=== PATIENT | female | born 2000 | race Caucasian/White ===

== ENCOUNTER 2021-08-04 08:58 | Day surgery (SDC) | payer BC ==
[~2021-08-04] VITALS: Ht 162.6 cm; Wt 93.4 kg
[2021-08-04 09:22] VITALS: BP 116/75; PULSE 84; TEMP 98.3
[2021-08-04 10:40] VITALS: BP 127/79; PULSE 89
--- NOTE | 2021-08-04 10:40 | NUR ---
Patient returns to [facility] [address] per cart and is able to transfer self from cart to recliner. States that she feels very dizzy. IV fluids infusing. Mother in room. Call light in reach. Allowed to rest.
[2021-08-04 10:55] VITALS: BP 119/79; PULSE 80
--- NOTE | 2021-08-04 10:55 | NUR ---
Dr. Thornton in the room talking with the patient and mother. Given muffin and water. Has denied nausea.
[2021-08-04 11:10] VITALS: BP 114/83; PULSE 71
--- NOTE | 2021-08-04 11:10 | NUR ---
Resting and talking with mother.
[2021-08-04 11:25] VITALS: BP 118/70; PULSE 73
--- NOTE | 2021-08-04 11:25 | NUR ---
States that she is feeling better and no more dizziness.
--- NOTE | 2021-08-04 11:37 | NUR ---
IV discontinued and site is free of redness. Patient dresses self. Dismissal instructions given and signed. Dismissed to home driven by mother and taken to the front door per wheelchair and assisted into vehicle by this RN with instructions in hand.
[2021-08-04 12:15] VITALS: BP 105/62; PULSE 78
== END 2021-08-04 11:37 | disposition home or self-care (01) ==
LOC: SDCO 08:58
DX: K29.30 Chronic superficial gastritis without bleeding (principal); K29.80 Duodenitis without bleeding; R19.4 Change in bowel habit; R19.7 Diarrhea, unspecified; R10.9 Unspecified abdominal pain; R15.2 Fecal urgency; Z90.89 Acquired absence of other organs
CPT/HCPCS: J2405; J2704; J7120